=== PATIENT | male | born 1965 | race Caucasian/White ===

== ENCOUNTER → 2017-11-02 | Outpatient (CLI) | payer BC ==
[~2017-11-02] VITALS: Ht 172.7 cm; Wt 136.0 kg
[~2017-11-02] MED LIST: ALL DAY ALLERGY10 M3 PO; ASPIR 8181 M1 PO; ATORVASTATIN CA10 MG PO; DULOXETINE HCL60 MG PO; MELATONIN10 M2 PO; MONTELUKAST SOD10 MG PO; MULTI-VITAMIN-1 EACH PO; NEXIUM40 MG PO; NORCO 5/3251 TABLET PO; OMEGA-31000 M1 PO; PEG 3350 ELEC4000 ML PO; SINGULAIR10 MG PO; VALSARTAN-HCTZ1 EAC1 PO; VALSARTAN-HCTZ1 EAC2 PO
== END | disposition home or self-care (01) ==
LOC: AMB 11:57
PROC: 0DBP8ZX Excision of Rectum, Via Natural or Artificial Opening Endoscopic, Diagnostic (ICD-10-PCS; principal; 2017-11-02)
DX: K62.1 Rectal polyp (principal); K64.8 Other hemorrhoids; K21.0 Gastro-esophageal reflux disease with esophagitis; I10 Essential (primary) hypertension; R74.0 Nonspecific elevation of levels of transaminase and lactic acid dehydrogenase [LDH]; E78.1 Pure hyperglyceridemia; K76.0 Fatty (change of) liver, not elsewhere classified; Z86.010 Personal history of colon polyps; G47.30 Sleep apnea, unspecified; Z82.49 Family history of ischemic heart disease and other diseases of the circulatory system; Z87.891 Personal history of nicotine dependence; Z79.82 Long term (current) use of aspirin; Z88.1 Allergy status to other antibiotic agents; Z88.8 Allergy status to other drugs, medicaments and biological substances
CPT/HCPCS: 88305; 93005; J2250